=== PATIENT | female | born 1995 | race Caucasian/White ===

== ENCOUNTER 2016-12-04 09:29 | Emergency (ER) | payer BC, MEDICAID ==
[2016-12-04] MEDS ORDERED: ONDANSETRON ODT 4 MG TAB ONE (09:57)
== END 2016-12-04 11:05 | disposition home or self-care (01) ==
LOC: ER 09:29
DX: J06.9 Acute upper respiratory infection, unspecified (principal); B34.9 Viral infection, unspecified; R11.2 Nausea with vomiting, unspecified; F17.200 Nicotine dependence, unspecified, uncomplicated
CPT/HCPCS: 36415; 80053; 81001; 83690; 84703; 85025; 87804; 87880